=== PATIENT | male | born 1955 | race Caucasian/White ===

== ENCOUNTER 2016-07-08 15:02 | Emergency (ER) | payer OTHER ==
[2016-07-08 15:29] VITALS: BP 121/60; PULSE 83; RESP 16; TEMP 97; O2SAT 97
[2016-07-08] MEDS ORDERED: LETS SOLN TOPICAL 1 EA SYR TP ONE ×2 (17:23→19:48)
--- NOTE | 2016-07-08 19:02 | DX ---
Left Finger, Three Views History: History of foreign body in second finger. Findings: No evidence for a radiopaque foreign body. No significant osseous abnormality. No evidence for osseous erosion or fracture. Impression: No evidence for a radiopaque foreign body.
[2016-07-08] MEDS ORDERED: DOXYCYCLINE 100 MG PREPACK#2 BTL TAKEHOME ONE (19:26)
[2016-07-08] MEDS ORDERED: OXYCODONE/APAP 5/325MG PREPACK#4 BTL TAKEHOME ONE (19:26)
--- NOTE | 2016-07-08 19:28 | UCPHY ---
H & P Time Seen by Provider: 07/08/16 17:34 Patient Type: Established HPI/ROS: 2 weeks ago this patient sustained a wood splinter to his left 2nd finger while working on a project at home. He removed part splinter but feels there is still something stuck in the finger because he reports 5 to 7/10 discomfort to the distal phalanx since that time. There is slight swelling associated with this. ROS: No drainage. No fevers. No redness to the finger. 5 point ROS is otherwise negative. Past Medical/Surgical History: Otherwise healthy with immunizations up-to-date. Smoking Status: Former smoker Physical Exam: Physical Exam Vital signs are normal. General: No acute distress Lungs: No respiratory distress. Cardiac: Brisk capillary refill is intact throughout. Skin: No rash or pallor. There is the puncture wound to the ulnar aspect of the left 2nd finger distal phalanx with the patient reports that he manipulated the injury tried of dig out any other splinter in . This is 3 mm in size with no active bleeding. There is no obvious foreign body on external examination of the finger the other is seems to be very slight swelling. No purulent drainage. No fluctuance. Neuro: Alert with no sensorimotor deficits. Initial differential diagnosis: Persistent foreign body verses mild infection from puncture wound causing swelling and discomfort Constitutional: Initial Vital Signs Temperature (C) 36.1 C 07/08/16 15:26 Heart Rate 83 07/08/16 15:26 Respiratory Rate 16 07/08/16 15:26 Blood Pressure 121/60 H 07/08/16 15:26 O2 Sat (%) 97 07/08/16 15:26 O2 Delivery Mode Room Air Allergies/Adverse Reactions: No Known Allergies Allergy (Verified 07/08/16 15:26) Home Medications: Medication Instructions Recorded Rapaflo Unk Dose 02/29/16 Doxycycline Hyclate 100 mg PO BID #14 capsule 07/08/16 oxyCODONE/APAP 5/325 [Percocet 1 - 2 tab PO Q4-6PRN PRN #12 tab 07/08/16 5/325 (*)] MDM/Departure - MDM Diagnostics: Finger x-ray: Negative for radiopaque foreign body Procedures: 1. Digital block: After verbal consent using chlorhexidine scrub the base of the affected finger and injected 50 50 mix of 0.5% Marcaine, 2% plain lidocaine , 8 mL with 3 injections 27 gauge needle with good effect. Patient tolerated this well with no complications. 2. Wound exploration, foreign body removal after verbal consent and thorough scrubbing of the affected area under sterile conditions using a 11. Scalpel blade and made a small 5 mm incision to the ulnar aspect of the distal phalanx 2nd finger and using magnifying loops and Dannielle clamp blunt dissection subcutaneous tissue explaining for foreign body finding only a very small approximately 2 mm dark foreign body removed. Patient had the impression that there was slight bulge to the radial aspect of the finger distal phalanx concerned there might be underlying foreign body. Made a small incision to this radial side as well approximately 5 mm in probed with Dannielle clamp 1 dissection with no foreign bodies found. Patient tolerated this well. Sutures: I placed a single 4 0 Ethilon suture to the ulnar if single suture to the radial aspect of the affected finger. Medications Given: Discontinued Medications Doxycycline Hyclate (Vibramycin 100 Mg Prepack#2) 1 btl TAKEHOME EDNOW ONE Stop: 07/08/16 19:27 Last Admin: 07/08/16 19:49 Dose: 1 btl Oxycodone/Acetaminophen (Percocet 5/325mg Prepack#4) 1 btl TAKEHOME EDNOW ONE Stop: 07/08/16 19:27 Last Admin: 07/08/16 19:51 Dose: 1 btl Tetracaine/Epinephrine/Lidocaine (Lets Soln Topical) 1 ea TP EDNOW ONE Stop: 07/08/16 19:49 Last Admin: 07/08/16 17:26 Dose: 1 ea ED Course/Re-evaluation: Discussion: Patient with finger pain it may be due subtle wound infection from puncture wound small foreign body then removed. Counseled patient regarding this. We will place him on doxycycline antibiotic. - Depart Disposition: Home, Routine, Self-Care Clinical Impression: Puncture wound, History of retained foreign body fully removed Condition: Good Instructions: Puncture Wound (ED), Care For Your Stitches (ED) Additional Instructions: Diagnosis: Puncture wound to left 2nd finger Plan: Keep the wound clean and dry for the next 2 days. Then removed the dressing and clean daily with warm soapy water Doxycycline antibiotic Ibuprofen and Tylenol or Percocet for pain control as needed. Return for suture removal in 10-12 days Consider follow-up with Dr. Mcneill-hand specialist if you have any ongoing or worsening symptoms despite the treatment plan. Prescriptions: Doxycycline Hyclate 100 mg PO BID #14 capsule oxyCODONE/APAP 5/325 [Percocet 5/325 (*)] 1 - 2 tab PO Q4-6PRN PRN #12 tab PRN Reason: Pain Referrals: NONE *PRIMARY CARE P,. [Primary Care Provider] - As per Instructions Seven Mcneill MD [Medical Doctor] - As per Instructions - PQRS PQRS Measurement: NA
== END 2016-07-08 19:52 | disposition home or self-care (01) ==
LOC: CED 15:02
PROC: 0JCK0ZZ Extirpation of Matter from Left Hand Subcutaneous Tissue and Fascia, Open Approach (ICD-10-PCS; principal; 2016-07-08)
DX: S60.451A Superficial foreign body of left index finger, initial encounter (principal)
CPT/HCPCS: 10121-PO; 73140-PO; 99214-PO; G0463-PO

== ENCOUNTER → 2018-04-03 | Outpatient (CLI) | payer OTHER ==
[~2018-04-03] MED LIST: IOPAMIDOL (ISOVUE-M 200) 20 ML VIAL ONE; LIDOCAINE 1% 300 MG/30 ML SDV ONE
[2018-04-03 10:11] LABS: INR 0.88 (0.83-1.16); PROTIME(PATIENT) 12.2 SEC (12.0-15.0)
== END ==
LOC: FIMAGING 09:20
PROVIDERS: ATTEND Physical Medicine & Rehabilitation
PROC: B02BYZZ Computerized Tomography (CT Scan) of Spinal Cord using Other Contrast (ICD-10-PCS; principal; 2018-04-03)
DX: M47.896 Other spondylosis, lumbar region (principal); M48.061 Spinal stenosis, lumbar region without neurogenic claudication; M51.36 Other intervertebral disc degeneration, lumbar region
CPT/HCPCS: Q9966